=== PATIENT | male | born 1960 | race Caucasian/White ===

== ENCOUNTER 2018-11-14 09:21 | Emergency (ER) | payer MEDICAID, SELFPAY ==
[2018-11-14] VITALS (66 sets, daily range): BP systolic 131–164; BP diastolic 60–90; PULSE 51–79; RESP 8–24; TEMP 36.6; O2SAT 95–100
--- NOTE | 2018-11-14 09:46 | W.ED.GENAD ---
Discharge Plan Disposition Patient Disposition: AGAINST MEDICAL ADVICE Condition: Fair Discharge Details Chief Complaint: Chest Pain Clinical Impression: Chest pain Primary Care Provider: Henri Thurston ED Provider: Tania Lopez Home Meds and New Rx's Prescriptions: Continued diphenhydramine HCl [Benadryl] 25 MG capsule 25 mg PO PRN PRNRF: 0 nitroglycerin 0.4 MG tablet, sublingual 0.4 mg Sublingual ONCE RF: 0 aspirin [Aspirin Low-Strength] 81 MG tablet,chewable 81 mg PO DAILY RF: 0 ferrous sulfate 325 MG tablet 325 mg PO DAILY RF: 0 pravastatin 40 MG tablet 40 mg PO DAILY Qty: 30 RF: 4 metoprolol succinate 50 MG tablet extended release 24 hr 50 mg PO DAILY Qty: 90 RF: 4 omeprazole 20 mg capsule,delayed release(DR/EC) 20 mg PO DAILY 90 Days Qty: 90 RF: 5 Discharge Instructions Instructions: Chest Pain (ED) Additional Instructions: You have elected to leave the emergency department AGAINST MEDICAL ADVICE. You may return to the emergency department anytime if you change your mind. Please return immediately to the emergency department he develop any new or worsening symptoms or if you become otherwise concerned. It is extremely important that you call as soon is possible to make an appointment to be seen by your primary care doctor and by your city clerk in follow-up for this visit. It is also extremely important that you attend your scheduled stress test on November 19 at 8:30 AM. Please arrive at 8:15 AM Referrals: Henri Thurston [Primary Care Provider] - Paulino Vaughan MD [ CONSULTING PHYSICIAN] - Discharge Data Discharge Date/Time-TO BE ENTERED AT DEPARTURE: 11/14/18 15:49 Medical Decision Making Hans Kiser is a 58-year-old man with history of peripheral vascular disease, coronary artery disease status post stents who presented to the emergency department with exertional chest pain over the past 3 months with episode that occurred this morning, pain now resolved while resting in the emergency department. Exam patient is well and nontoxic appearing. Benign cardiopulmonary exam. Concern for ACS versus PE versus other. Exam/history is not consistent with sepsis, acute aortic pathology. Plan for EKG, chest x-ray, screening labs, telemetry. Will monitor and reassess. Pt reassessed, continues to be asymptomatic. Pt stating that he does not wish to be admitted to the hospital. He is amenable to repeat troponin and repeat EKG. We will continue to monitor. Repeat troponin and repeat EKG remained normal. Patient states that he has had no symptoms since being the emergency department. I am very concerned that patient symptoms may be cardiac in nature, given that they are exertional and his significant cardiac history he is likely experiencing unstable angina. I discussed my recommendation for admission to the patient. Patient reports that he has a phobia of being an unusual places, and does not want to stay in the hospital at this time. I discussed the risks of leaving AGAINST MEDICAL ADVICE including or permanent disability at length with the patient. Patient verbalizes understanding of the risks, has decision-making capacity, and continues to refuse to be admitted. I scheduled outpatient stress test for soonest appointment, November 19 8:30am, patient placed on list for outpatient follow-up with cardiology. I had a lengthy discussion with the patient regarding return to emergency department precautions, that he may return to the emergency department anytime if he changes his mind, importance of outpatient stress testing and outpatient follow-up with his PCP and with cardiology, and home care. Patient verbalized understanding of the plan. Patient was discharged home with clear plan for outpatient follow-up. All questions were answered. Medical Records Medical records reviewed: Yes I reviewed the patient's medical records. Imaging Data Radiologic Study: Attestation: I personally reviewed and interpreted this imaging study as follows: Radiologist's impression: PORTABLE AP CHEST: No priors. The heart is normal in size. The lungs are clear. The mediastinal structures and pleura appear intact. CONCLUSION: Normal chest. CT ANGIOGRAPHY OF THE CHEST: CT angiography was performed with multi slice acquisition and multi planar and 3D reconstruction. Routine examination was performed. There is no evidence of a pulmonary embolus. The thoracic aorta is intact. No evidence of dissection or aneurysm. The heart size is within normal limits. No significant pericardial effusion is seen. Coronary artery calcifications are present. No significant thoracic adenopathy, ascites or pneumoperitoneum is seen. No focal consolidating infiltrates are seen in the lungs. There is scarring in the lingula. The tracheobronchial tree is unremarkable. The bones appear intact. IMPRESSION: No evidence of pulmonary embolus, thoracic aortic dissection or aneurysm. Lab Data Lab results reviewed: Yes I reviewed the patient's lab results. Laboratory Tests Range/Units 11/14/18 11/14/18 11/14/18 09:40 09:40 09:40 WBC (4.4-10.8) k/cumm 4.58 RBC (4.50-6.00) m/cumm 4.62 Hgb (13.5-17.5) g/dL 14.6 Hct (40.0-50.0) % 41.8 MCV (80-95) fL 90.5 MCH (27.0-33.0) pg 31.6 MCHC (32.0-36.0) g/dL 34.9 RDW (11.8-14.1) % 12.7 Plt Count (130-400) x1000/uL 230 MPV (8.0-11.0) fL 9.9 Immature Gran % 0.4 Neutrophils % 64.3 Lymphocytes % 19.2 Monocytes % 12.4 Eosinophils % 2.6 Basophils % 1.1 Absolute Neutrophils (1.2-6.7) k/cumm 2.94 Absolute Lymphocytes (1.2-3.4) k/cumm 0.88 L Absolute Monocytes (0.11-0.7) k/cumm 0.57 Absolute Eosinophils (0.0-0.7) k/cumm 0.12 Absolute Basophils (0.0-0.2) k/cumm 0.05 D-Dimer (<500) ng/mlFEU 865 H Sodium (136-145) mmol/L 130 L Potassium (3.5-5.1) mmol/L 4.0 Chloride (98-107) mmol/L 94 L Carbon Dioxide (21.0-32.0) mmol/L 25.6 Anion Gap (3-11) mmol/L 10.4 BUN (7-18) mg/dL 3 L Creatinine (0.70-1.30) mg/dL 0.63 L Estimated GFR/1.73 m2 (mL/min/1.73m2) >= 60.00 Glucose (70-100) mg/dL 76 Calcium (8.5-10.1) mg/dL 8.9 Magnesium (1.8-2.4) mg/dL 1.6 L Total Bilirubin (0.2-1.0) mg/dL 0.6 AST (15-37) U/L 44 H ALT (12-78) U/L 48 Alkaline Phosphatase (46-116) U/L 91 Troponin I (0.00-0.06) ng/mL < 0.02 NT-Pro-B Natriuret Pep ( - 299) pg/mL 169 Total Protein (6.4-8.2) g/dL 7.5 Albumin (3.4-5.0) g/dL 3.5 Range/Units 11/14/18 13:20 WBC (4.4-10.8) k/cumm RBC (4.50-6.00) m/cumm Hgb (13.5-17.5) g/dL Hct (40.0-50.0) % MCV (80-95) fL MCH (27.0-33.0) pg MCHC (32.0-36.0) g/dL RDW (11.8-14.1) % Plt Count (130-400) x1000/uL MPV (8.0-11.0) fL Immature Gran % Neutrophils % Lymphocytes % Monocytes % Eosinophils % Basophils % Absolute Neutrophils (1.2-6.7) k/cumm Absolute Lymphocytes (1.2-3.4) k/cumm Absolute Monocytes (0.11-0.7) k/cumm Absolute Eosinophils (0.0-0.7) k/cumm Absolute Basophils (0.0-0.2) k/cumm D-Dimer (<500) ng/mlFEU Sodium (136-145) mmol/L Potassium (3.5-5.1) mmol/L Chloride (98-107) mmol/L Carbon Dioxide (21.0-32.0) mmol/L Anion Gap (3-11) mmol/L BUN (7-18) mg/dL Creatinine (0.70-1.30) mg/dL Estimated GFR/1.73 m2 (mL/min/1.73m2) Glucose (70-100) mg/dL Calcium (8.5-10.1) mg/dL Magnesium (1.8-2.4) mg/dL Total Bilirubin (0.2-1.0) mg/dL AST (15-37) U/L ALT (12-78) U/L Alkaline Phosphatase (46-116) U/L Troponin I (0.00-0.06) ng/mL 0.03 NT-Pro-B Natriuret Pep ( - 299) pg/mL Total Protein (6.4-8.2) g/dL Albumin (3.4-5.0) g/dL ECG Data Attestation: I personally reviewed and interpreted this ECG (s) as follows: Interpretation: EKG is sinus rhythm at 63, normal axis, no ST elevation or depression, nondiagnostic EKG Repeat EKG at 13:13 with apparent lead reversal V1/V2, will repeat Repeat EKG 13:23 shows sinus rhythm at 56, normal axis, unchanged from initial, nondiagnostic EKG HPI General Mode of arrival: ambulatory. Date/Time Provider Initiated Documentation: 11/14/18 09:46. Limitations to Documentation: no limitations. Information obtained by: patient, RN notes reviewed and old records reviewed. HPI Narrative: Hans Kiser is a 58 y/o man with history of cardiac artery disease status post stents, peripheral vascular disease status post stents presenting to the emergency department chest pain. Patient reports that he has several cardiac stents, with the last one being placed 2 to 3 years ago, this is also the approximate time of his last stress test. Patient reports that over the past 2 to 3 months he has had increasing chest pain that seems worse with exertion and improved with rest. Patient reports that he had his typical worsening of chest pain while exerting himself this morning, and felt that he should be evaluated given that his symptoms seem worse in the past few months than they have over the past year. He reports that pain is in his left chest, aching, and radiates into his left arm. He reports baseline mild shortness of breath and nausea during episodes of chest pain, but no worsening of his shortness of breath, no other new pain, no cough, no numbness or weakness the extremities. Approximately 1 month ago patient traveled to [place] and [facility] by car, no other recent travel. Has been eating and drinking as usual. No recent illness. Took his morning meds this morning including 81 mg of aspirin. Related Data Home Medications Medication Instructions Recorded Confirmed aspirin [Aspirin Low-Strength] 81 mg PO DAILY tab-cap 10/22/14 11/14/18 diphenhydramine HCl [Benadryl] 25 mg PO PRN PRN 10/22/14 11/14/18 nitroglycerin 0.4 mg SUBLINGUAL ONCE tab-cap 10/22/14 11/14/18 ferrous sulfate 325 mg PO DAILY 02/11/15 11/14/18 pravastatin 40 mg PO DAILY #30 tab-cap 02/16/15 11/14/18 metoprolol succinate 50 mg PO DAILY #90 tab-cap 07/27/15 11/14/18 omeprazole 20 mg capsule,delayed 20 mg PO DAILY 90 Days #90 tab-cap 03/01/18 11/14/18 release Previous Rx's Medication Instructions Recorded omeprazole 20 mg capsule,delayed 20 mg PO DAILY 90 Days #90 tab-cap 03/01/18 release Allergies Allergy/AdvReac Type Severity Reaction Status Date / Time clopidogrel bisulfate Allergy Unverified 11/14/18 09:31 [From Plavix] lisinopril Allergy Unverified 11/14/18 09:31 General Stated Complaint: Chest Pain CONSTANCE: 2 Review of Systems Review of Systems Constitutional: denies fevers Eyes: denies eye pain ENT: denies facial pain, dental pain, sore throat Cardiovascular: denies edema, reports chest pain Respiratory: Reports baseline shortness of breath and cough, not increased from his usual GI: denies abdominal pain, vomiting, diarrhea : denies flank pain MSK: denies back pain, neck pain, arthralgias, myalgias Skin: denies rash Neuro: denies headaches, numbness, weakness PFSH Social History Smoking/Tobacco Use Status: Current every day Alcohol Intake: current Alcohol Intake frequency: 3 or more drinks per day Alcohol type: beer Substance use type: does not use Do you feel safe at home: Yes Do you feel safe in your relationship?: Yes Exam Narrative Exam Narrative: Constitutional: well and [id number], pleasant, conversing normally HENT: head atraumatic/normocephalic/normal inspection, mucous membranes moist Eyes: conjunctiva normal, sclera normal, pupils 3mm b/l Neck: no stridor, normal ROM, trachea midline Chest: normal inspection Resp: normal work of breathing, LCTAB Cardio: normal rate, normal rhythm, no murmur appreciated GI: abdomen soft, non-tender, non-distended Back: normal inspection, no rash Skin: warm, dry, normal color, no rash Neuro: alert, not altered, grossly non-focal, normal tone Ext: no edema, no posterior calf tenderness Psych: normal mood, normal affect, normal behavior Course Vital Signs Temperature 36.6 C 11/14/18 09:26 Pulse 62 11/14/18 09:26 Respiratory Rate 14 11/14/18 09:26 Blood Pressure 164/90 H 11/14/18 09:26 Pulse Oximetry 98 11/14/18 09:26 Temperature 36.6 C 11/14/18 09:26 Temperature Source Skin 11/14/18 09:26 Pulse 62 11/14/18 09:26 Respiratory Rate 14 11/14/18 09:26 Respiratory Effort Non-Labored 11/14/18 09:31 Blood Pressure 164/90 H 11/14/18 09:26 Blood Pressure Position Sitting 11/14/18 09:26 Pulse Oximetry 98 11/14/18 09:26
[2018-11-14 10:22] LABS: Abs Immature Grans 0.02 k/cumm (0.0-0.09); Absolute Basophil Count 0.05 k/cumm (0.0-0.2); Absolute Eosinophil Count 0.12 k/cumm (0.0-0.7); Absolute Lymphocyte Count 0.88 k/cumm (1.2-3.4); Absolute Monocyte Count 0.57 k/cumm (0.11-0.7); Absolute Neutrophil Count 2.94 k/cumm (1.2-6.7); Basophils % 1.1; Eosinophils % 2.6; HCT 41.8 % (40.0-50.0); HGB 14.6 g/dL (13.5-17.5); Immature Grans % 0.4; Lymphocytes % 19.2; Mean Corp. HGB Concentration 34.9 g/dL (32.0-36.0); Mean Corpuscular Hemoglobin 31.6 pg (27.0-33.0); Mean Corpuscular Volume 90.5 fL (80-95); Mean Platelet Volume 9.9 fL (8.0-11.0); Monocytes % 12.4; Neutrophils % 64.3; Platelet Count 230 x1000/uL (130-400); RBC 4.62 m/cumm (4.50-6.00); RBC Distribution Width 12.7 % (11.8-14.1); White Blood Cell Count 4.58 k/cumm (4.4-10.8)
[2018-11-14 10:50] LABS: ALT 48 U/L (12-78); AST 44 U/L (15-37); Albumin 3.5 g/dL (3.4-5.0); Alkaline Phosphatase 91 U/L (46-116); Anion Gap 10.4 mmol/L (3-11); BUN 3 mg/dL (7-18); Bilirubin, Total 0.6 mg/dL (0.2-1.0); CO2 25.6 mmol/L (21.0-32.0); CREATININE 0.63 mg/dL (0.70-1.30); Calcium 8.9 mg/dL (8.5-10.1); Chloride 94 mmol/L (98-107); Glucose 76 mg/dL (70-100); Magnesium 1.6 mg/dL (1.8-2.4); NT-proBNP 169 pg/mL; Sodium 130 mmol/L (136-145); Total Protein 7.5 g/dL (6.4-8.2)
[2018-11-14 10:53] LABS: Troponin I < 0.02 ng/mL (0.00-0.06)
[2018-11-14 11:00] LABS: D-Dimer 865 ng/mlFEU (<500)
--- NOTE | 2018-11-14 11:38 | DI.CT_ITS ---
SYMPTOMS/DIAGNOSIS: CHEST PAIN, ELEVATED D DIMER CT ANGIOGRAPHY OF THE CHEST: CT angiography was performed with multi slice acquisition and multi planar and 3D reconstruction. Routine examination was performed. There is no evidence of a pulmonary embolus. The thoracic aorta is intact. No evidence of dissection or aneurysm. The heart size is within normal limits. No significant pericardial effusion is seen. Coronary artery calcifications are present. No significant thoracic adenopathy, ascites or pneumoperitoneum is seen. No focal consolidating infiltrates are seen in the lungs. There is scarring in the lingula. The tracheobronchial tree is unremarkable. The bones appear intact. IMPRESSION: No evidence of pulmonary embolus, thoracic aortic dissection or aneurysm.
[2018-11-14] MEDS: Omnipaque 350 MG/ML 100 ML BTL IJ (11:39)
[2018-11-14] MEDS: Normal Saline 1,000 ML 1000 ML IV (11:51)
[2018-11-14 13:45] LABS: Troponin I 0.03 ng/mL (0.00-0.06)
== END 2018-11-14 15:49 | disposition left against medical advice (07) ==
PROVIDERS: Emergency Provider Student in an Organized Health Care Education/Training Program; PCP Neuromusculoskeletal Medicine & OMM
DX: R07.9 Chest pain, unspecified (principal); Z53.29 Procedure and treatment not carried out because of patient's decision for other reasons
CPT/HCPCS: 36415; 71275; 80053; 93005; 96360; 99285; 71045; 83735; 83880; 84484; 85025; 85379; 93010; J3490

== ENCOUNTER 2018-11-19 00:29 | Outpatient (CLI) | payer MEDICAID, SELFPAY ==
--- NOTE | 2018-11-19 08:30 | ETT_ITS ---
*[facility]* *[facility]* [address] [place] [address] Stress Electrocardiography Amos protocol Date of study: 11/19/2018 *PATIENT PRESENTATION* Height: 162.6cm (64in) Blood Pressure: Weight: 61.4kg (135lb) BSA: 1.67m^2 Referring physician: Tania Lopez Ordering physician: Tania Lopez Impressions: Normal study after maximal exercise. Summary: 1. Stress ECG conclusions: The stress ECG is negative. Garcia treadmill score: 6. This score predicts a low risk of cardiac events. 2. Stress: The target heart rate was achieved. Indication: R07.9. History: REASON FOR VISIT: PT REPORTS CHRONIC CHEST PAINS FOR THE PAST 4-5 MONTHS AND THE NUMBER OF EPISODES ARE INCREASING. HE HAS A HISTORY OF 2 PRIOR NON-ST ELEVATION MYOCARDIAL INFARCTIONS, HYPERTENSION, HYPERLIPIDEMIA, PERIPHERAL VASCULAR DISEASE AND HE IS A 1 PACK PER DAY SMOKER. Risk factors: Current tobacco use. Hypertension. Dyslipidemia. Peripheral vascular disease. ALLERGIES: LISINOPRIL. PLAVIX. MEDICATIONS: SIMVASTATIN 40 MG DAILY. NITROGLYCERIN 0.4 MG PRN. METOPROLOL SUCCINATE 25 MG DAILY. ASPRIN 81 MG DAILY. BENADRYL 25 MG DAILY PRN. OMEPRAZOLE 20 MG DAILY. FERROUS SULFATE 325 MG DAILY. Protocol: Amos protocol. Baseline ECG: SINUS BRADYCARDIA. HR 57 BPM. Stress protocol: + +---+ + !Stage !HR !BP (mmHg) ! + +---+ + !Baseline supine !57 !130/60 (83) ! + +---+ + !Baseline standing !108!130/68 (89) ! + +---+ + !Stage I; 1.7mph, 10degrees; 3 min !83 !132/70 (91) ! + +---+ + !Stage II; 2.5mph, 12degrees; 3 min !97 !140/80 (100)! + +---+ + !Stage III; 3.4mph, 14degrees; 3 min!114!146/82 (103)! + +---+ + !Stage IV; 4.2mph, 16degrees; 3 min !138! ! + +---+ + !Peak stress !140! ! + +---+ + !Recovery; 1 min !112!190/86 (121)! + +---+ + !Recovery; 3 min !72 !142/68 (93) ! + +---+ + !Recovery; 6 min !74 !126/60 (82) ! + +---+ + * Stress results: Maximal heart rate during stress was 140bpm (86% of maximal predicted heart rate). The maximal predicted heart rate was 162bpm. The target heart rate was achieved. The rate-pressure product for the peak heart rate and blood pressure was 28353un Hg/min. Stress ECG: TREADMILL PORTION OF STRESS TEST ENDED IN 10 MINUTES & 15 SECONDS DUE TO COUGHING & SHORTNESS OF BREATH. NORMAL HEART RATE AND BLOOD PRESSURE RESPONSE TO EXERCISE MAX HR = 140 % OF TARGET = 86 RARE PAC. APPROXIMATE METS ACHIEVED = 12.21 1 OUT OF 10 CHEST PAIN AT BASELINE WITH NO INCREASE IN CHEST DISCOMFORT DURING EXERCISE OR RECOVERY. NO SIGNIFICANT ST SEGMENT CHANGES AVERAGE FUNCTIONAL CAPACITY FOR EXERCISE The stress ECG is negative. Garcia treadmill score: 6. This score predicts a low risk of cardiac events. Study data: Segun Puente MD supervised and was readily available during the procedure. This study was interpreted by [facility]. Study status: Routine. Consent: The risks, benefits, and alternatives to the procedure were explained to the patient and informed consent was obtained. Procedure: Initial setup. A baseline ECG was recorded. Surface ECG leads and manual cuff blood pressure measurements were monitored. Heart sounds: Normal. Lung sounds: Normal. Treadmill exercise testing was performed using the Amos protocol. Study completion: The patient tolerated the procedure well and was discharged from the lab. Discharge: The patient left the laboratory in stable condition. Birthdate: Patient birthdate: 1960. Sex: Gender: male. Study date: Study date: 11/19/2018. Study time: 00:01 AM. Electronically signed by Segun Puente MD 11/19/2018 10:27
== END 2018-11-19 00:49 ==
PROVIDERS: PCP Neuromusculoskeletal Medicine & OMM; Visit Provider Student in an Organized Health Care Education/Training Program
DX: R07.89 Other chest pain (principal)
CPT/HCPCS: 93017

== ENCOUNTER 2019-01-15 08:57 | Day surgery (SDC) | payer MEDICAID, SELFPAY ==
[2019-01-15 09:02] VITALS: BP 130/72; PULSE 65; RESP 18; TEMP 36.7; O2SAT 100
[2019-01-15] MEDS: Lactated Ringers 1,000 ML 80 ML IV (09:30)
--- NOTE | 2019-01-15 11:29 | W.PM.DSUDISC ---
Discharge Plan Disposition Patient Disposition: HOME Condition: Good Discharge Details Reason For Visit: EGD, colonoscopy Attending Provider: Rosa Sibley Primary Care Provider: Henri Thurston Home Meds and New Rx's Prescriptions: Continued Zyrtec 10 mg capsule 10 mg PO DAILY PRNRF: 0 cholecalciferol (vitamin D3) 1,000 unit capsule 1,000 unit PO DAILY RF: 0 diphenhydramine HCl [Benadryl] 25 MG capsule 25 mg PO PRN PRNRF: 0 aspirin [Aspirin Low-Strength] 81 MG tablet,chewable 81 mg PO DAILY RF: 0 ferrous sulfate 325 MG tablet 325 mg PO DAILY RF: 0 pravastatin 40 MG tablet 40 mg PO DAILY Qty: 30 RF: 4 metoprolol succinate 50 MG tablet extended release 24 hr 50 mg PO DAILY Qty: 90 RF: 4 omeprazole 20 mg capsule,delayed release(DR/EC) 20 mg PO DAILY 90 Days Qty: 90 RF: 5 nitroglycerin 0.4 mg tablet, sublingual 0.4 mg Sublingual ONCE PRNRF: 0 Discharge Instructions Additional Instructions: Findings: Your EGD showed mild inflammation of the stomach (gastritis) One small polyp was removed from the colon Follow up: My office will call with biopsy results. Colonoscopy may be indicated in 5 years depending on the polyp pathology. Please call if you develop: fevers >101.5 Nausea or Vomiting Abdominal pain that is not transient DAY SURGERY UNIT POST COLONOSCOPY INSTRUCTIONS 1. Because there will be medication in your system for the next 24 hours, you may feel a little sleepy. Your coordination will be affected. Therefore: a. Do not drive or operate dangerous equipment for 24 hours. b. Do not drink alcohol beverages for 24 hours (not even beer). c. Plan to go home and rest for the day. 2. Generally there are no restrictions on your activity after a day or so has gone by, but you may feel a bit fatigued for a few days. 3 After you arrive home you may have a light meal and return to a normal diet as you can tolerate it without feeling sick to your stomach. 4. After surgery, you may feel pain or discomfort. This should be only transient, but if it persists please contact your doctor. 5. If there are any questions regarding the findings of your procedure, please feel free to contact your doctor. 6. If you are unable to contact your doctor with a problem, contact the hospital at [phone]. 1. Continue all your regular medications unless directed otherwise. I understand the above instructions and have no questions. Signature of Patient or Responsible Adult Escort Date/Time Name of Responsible Adult Escort Signature of Nurse Date/Time Activity:: Activity as Tolerated Diet:: As Tolerated Discharge Orders Discharge Orders: Discharge Order (Routine); Ordered 01/15/19 Ordered By: Rosa Sibley DS: Diagnosis Discharge Diagnosis (1) Gastritis: Status: Acute (2) Colon polyp: Status: Acute (3) History of esophagogastroduodenoscopy (EGD): (4) S/P colonoscopy with polypectomy:
--- NOTE | 2019-01-15 12:01 | STOM_PTH ---
PATIENT: Hans Kiser LOC: [facility] U#:[id number] AGE/SX: 58/M ROOM: RE01/15/[address]: Rosa Sibley MD : 1960 BED: DIS: 01/15/2019 SPEC #: [id number] RECD: 01/15/19 17:05 STATUS: WILLY RE #: [id number] JEREL: 01/15/19 12:[address]: Rosa Sibley DEPT: Surgical Specimen RECD BY: Lolita Crowe ENTERED: 01/15/19 17:06 SP TYPE: STOMACH OTHR DR: Henri Thurston Tissues: 1 - STOMACH BIOPSY 2 - BIOPSY BOWEL Procedures: GROSS AND MICRO LEVEL 4 Comments: [id number]
[2019-01-15 13:10] VITALS: BP 142/80; PULSE 68; RESP 18; TEMP 36.5; O2SAT 100
--- NOTE | 2019-01-15 14:53 | ENDO_ITS ---
DATE OF PROCEDURE: January 15, 2019 PREOPERATIVE DIAGNOSIS: 1. Atypical chest pain. 2. Reflux. 3. Colon screening. POSTOPERATIVE DIAGNOSIS: 1. Mild gastritis. 2. Schatzki ring. 3. Rectal polyp. PROCEDURE: 1. Esophagogastroduodenoscopy with gastric biopsy. 2. Colonoscopy with biopsy removal of a polyp. SURGEON: Rosa Sibley M.D. ANESTHESIA: Monitored Anesthesia Care. INDICATIONS: This is a 58-year-old man who reports reflux and atypical chest pain. He has had a neg ative cardiac evaluation. He has not had a previous EGD or a colonoscopy. No family history of colo n cancer. PROCEDURE: He was placed in the left lateral decubitus position. Propofol was titrated to sedation. The scope was advanced into his esophagus under direct visualization and passed down into the stoma ch and duodenum. There was mild duodenitis of the bulb. The stomach itself revealed generalized mil d gastritis. Biopsies were taken from the gastric antrum. Retroflex view of the fundus and lesser c urvature showed no other abnormalities. Biopsies were taken from the antrum and body of the stomach. The GE junction exhibited no masses, inflammation or Doshi's. He did have a minimal Schatzki rin g that is presumably asymptomatic, therefore dilation was not performed. The air was suctioned from the stomach and the scope withdrawn with no other esophageal lesions found. Digital rectal examination revealed no abnormalities. The scope was advanced to the cecum without di fficulty. The ileocecal valve and appendiceal orifice were clearly identified. His prep was good. The scope was slowly withdrawn with no abnormalities seen within the ascending, transverse, descendin g or sigmoid colon. In the proximal rectum a diminutive polyp was removed with a cold forceps and se nt to Pathology. No other abnormalities were noted upon retroflexion. He tolerated the procedure we ll and was stable to recovery. If the polyp is adenomatous he will need a follow-up colonoscopy ken valdes in five years. cc: Henri Thurston M.D.
== END 2019-01-15 13:26 | disposition home or self-care (01) ==
PROVIDERS: PCP Neuromusculoskeletal Medicine & OMM; Visit Provider Surgery
PROC: (CPT 45380; principal; 2019-01-15 10:30)
DX: R07.89 Other chest pain (principal); K21.9 Gastro-esophageal reflux disease without esophagitis; Z12.11 Encounter for screening for malignant neoplasm of colon; D12.8 Benign neoplasm of rectum; K31.89 Other diseases of stomach and duodenum; K29.80 Duodenitis without bleeding; K29.60 Other gastritis without bleeding; K22.2 Esophageal obstruction; F17.210 Nicotine dependence, cigarettes, uncomplicated; F10.10 Alcohol abuse, uncomplicated
CPT/HCPCS: 45380; 43239; 88305; J2250

== ENCOUNTER 2022-06-08 12:34 | Emergency (ER) | payer MEDICAID, SELFPAY ==
[2022-06-08 12:41] VITALS: BP 115/74; PULSE 77; RESP 16; TEMP 37.2; O2SAT 100
--- NOTE | 2022-06-08 12:45 | RT.EKG_ITS ---
APPROVED REPORT Exam: Resting ECG Reason for Exam: sob Patient Location: E HR:66 bpm ECG Measurements Heart Rate 66 AXIS MO 156 P 14 QRSd 93 QRS 64 QT 377 T 42 QTc 395 Conclusion Sinus rhythm...normal P axis, V-rate 60- 99
--- NOTE | 2022-06-08 13:20 | ED.GENADUL_ITS ---
Discharge Plan Discharge Details Chief Complaint: [facility]Medical Primary Care Provider: Henri Thurston ED Provider: Teo Lopez Home Meds and New Rx's Prescriptions: No Action Zyrtec 10 mg capsule 10 mg PO DAILY PRN cholecalciferol (vitamin D3) 1,000 unit capsule 1,000 unit PO DAILY diphenhydramine HCl [Benadryl] 25 MG capsule 25 mg PO PRN PRN aspirin [Aspirin Low-Strength] 81 MG tablet,chewable 81 mg PO DAILY ferrous sulfate 325 MG tablet 325 mg PO DAILY metoprolol succinate 50 MG tablet extended release 24 hr 50 mg PO DAILY Qty: 90 nitroglycerin 0.4 mg tablet, sublingual 0.4 mg Sublingual ONCE PRN atorvastatin 20 mg tablet 20 mg PO DAILY Label Comments: TAKE ONE TABLET BY MOUTH EVERY DAY modafinil 200 mg Tablet 200 mg PO DAILY omeprazole 20 mg tablet,delayed release (DR/EC) 40 mg PO BID Medical Decision Making 1325 -- 62-year-old male chronic smoker with history of hypertension, hyperlipidemia, coronary artery disease, gastritis, here with generalized fatigue over the past 1 month with cough over the past few weeks. He has had night chills for some time. Recent decreased appetite. Patient is hemodynamically stable with no signs of focal bacterial infection on exam. Consider electrolyte abnormalities versus thyroid dysfunction versus malignancy versus other. Plan to obtain screening labs and chest x-ray. --initial labs reviewed: Hyponatremia with sodium of 127 noted. 1540 -- Patient was given IV fluid bolus. CT of the abdomen pelvis and chest interpreted by radiology, Dr. Trinh, who I spoke with and notes: Atherosclerosis, scarring left upper lobe of the lung which is unchanged from prior, no findings concerning for malignancy or other acute surgical pathology. Plan to repeat BMP. HPI General Mode of arrival: ambulatory . Date/Time Provider Initiated Documentation: 06/08/22 12:45 . Limitations to Documentation: no limitations . Information obtained by: patient . HPI Narrative: 62-year-old male with multiple medical problems including history of coronary artery disease, status post stents, hypertension, hyperlipidemia, tobacco use, gastritis, here with chief complaint of generalized fatigue. Symptoms are severe and persistent over the past 1 month. He does note cough persistent over the past few weeks. No fevers but does have chills at night that has been going on for months. He denies associated chest pain but does have some dyspnea on exertion. He also notes nausea. No vomiting. He has had dark coloration of urine for the past 3 weeks. No dysuria or roma hematuria. Related Data Home Medications Medication Instructions Recorded Confirmed aspirin 81 mg chewable tablet 81 mg PO DAILY 10/22/14 06/08/22 (Aspirin Low-Strength) diphenhydramine HCl 25 mg capsule 25 mg PO PRN PRN 10/22/14 06/08/22 (Benadryl) ferrous sulfate 325 mg (65 mg 325 mg PO DAILY 02/11/15 06/08/22 iron) tablet metoprolol succinate 50 mg 50 mg PO DAILY #90 tab-caps 07/27/15 06/08/22 tablet,extended release 24 hr cetirizine 10 mg capsule (Zyrtec) 10 mg PO DAILY PRN 01/03/19 06/08/22 cholecalciferol (vitamin D3) 25 1,000 unit PO DAILY 01/03/19 06/08/22 mcg (1,000 unit) capsule nitroglycerin 0.4 mg sublingual 0.4 mg sublingual ONCE PRN 01/03/19 06/08/22 tablet atorvastatin 20 mg tablet 20 mg PO DAILY 06/08/22 06/08/22 modafinil 200 mg tablet 200 mg PO DAILY 06/08/22 06/08/22 omeprazole 20 mg tablet,delayed 40 mg PO BID 06/08/22 06/08/22 release Allergies Allergy/AdvReac Type Severity Reaction Status Date / Time clopidogrel bisulfate Allergy Verified 06/08/22 12:45 [From Plavix] lisinopril Allergy Verified 06/08/22 12:45 General Stated Complaint: GenMedical CONSTANCE: 3 Review of Systems All systems reviewed & are unremarkable except as noted in HPI and below Constitutional Constitutional: Denies fever(s) Cardiovascular Cardiovascular: Reports as per HPI and Denies pedal edema Respiratory Respiratory: Reports as per HPI PFSH All Active Problems Colon polyp (Acute) Gastritis (Acute) Encounter for screening colonoscopy (Acute) Medical History Acute subendocardial infarction Alcohol abuse Allergic rhinitis Anisocytosis CAD (coronary artery disease) Chronic fatigue syndrome Epididymitis HTN (hypertension) Hyperlipidemia Hypersomnia Iron deficiency anemia Lesion of ulnar nerve Primary central sleep apnea Restless legs Tobacco use Tremor Surgical History H/O heart artery stent History of esophagogastroduodenoscopy (EGD) 01/15/19 History of surgery per pt R leg S/P colonoscopy with polypectomy 01/15/19 Family History Other Cancer Diabetes Heart disease Social History Smoking/Tobacco Use Status: Current every day Tobacco Type: cigarettes Years smoked: 40 Smoking risk assessment performed?: Yes Alcohol Intake: current Alcohol Intake frequency: 3 or more drinks per day Alcohol type: beer Drug use: Never Substance use type: does not use Do you feel safe at home: Yes Exam Const General: cooperative and no acute distress HENMT Mouth: moist mucous membranes Eyes Conjunctivae: normal conjunctivae Sclera: normal sclerae Neck Neck: trachea midline and supple Resp Effort & Inspection: normal respiratory effort Auscultation: clear to auscultation bilaterally, no rales, no rhonchi and no wh eezes Cardio Jugular venous pressure: no JVD Rate: regular rate and not tachycardic Rhythm: regular rhythm Heart Sounds: no gallops, no murmurs and no rubs GI Palpation: soft, not firm, no guarding, no masses, not rigid and nontender Skin General skin exam: no rashes or lesions noted Neuro General: patient alert, patient awake and tone normal Cognition: normal cognition Speech: speech normal Motor: strength 5/5 throughout Sensory Exam: no sensory deficits noted Extrem General: no edema Psych Appearance: grossly normal Mental Status: mental status grossly normal Speech and Movement: speech and movement normal Course Vital Signs Vital signs: Vital Signs Temperature 37.2 C 06/08/22 12:41 Pulse 77 06/08/22 12:41 Respiratory Rate 16 06/08/22 12:41 Blood Pressure 115/74 06/08/22 12:41 Pulse Oximetry 100 06/08/22 12:41 Temperature 37.2 C 06/08/22 12:41 Temperature Source Skin 06/08/22 12:41 Pulse 77 06/08/22 12:41 Respiratory Rate 16 06/08/22 12:41 Respiratory Effort 06/08/22 12:50 Blood Pressure 115/74 06/08/22 12:41 Blood Pressure Position Sitting 06/08/22 12:41 Pulse Oximetry 100 06/08/22 12:41 Oxygen Delivery Method Room Air 06/08/22 12:41 Oxygen Flow Rate 0 06/08/22 12:41 Pain Level 4 06/08/22 12:41 Lab/Test Results Lab/Test Results: Laboratory Tests Range/Units 06/08/22 13:00 WBC Cancelled RBC Cancelled Hgb Cancelled Hct Cancelled MCV Cancelled MCH Cancelled MCHC Cancelled RDW Cancelled Plt Count Cancelled MPV Cancelled Immature Gran % Cancelled Neutrophils % Cancelled Band Neutrophils % Cancelled Lymphocytes % Cancelled Atypical Lymphs % Cancelled Monocytes % Cancelled Eosinophils % Cancelled Basophils % Cancelled Metamyelocytes % Cancelled Myelocytes % Cancelled Promyelocytes % Cancelled Other Cells % Cancelled Nucleated RBC % Cancelled Absolute Neutrophils Cancelled Absolute Lymphocytes Cancelled Absolute Monocytes Cancelled Absolute Eosinophils Cancelled Absolute Basophils Cancelled RBC Morphology Cancelled Polychromasia Cancelled Hypochromasia Cancelled Poikilocytosis Cancelled Basophilic Stippling Cancelled Anisocytosis Cancelled Microcytosis Cancelled Macrocytosis Cancelled Spherocytes Cancelled Tear Drop Cells Cancelled Ovalocytes Cancelled Stomatocytes Cancelled [place] Bodies Cancelled Emma Cells/Echinocytes Cancelled Acanthocytes (Spur) Cancelled Schistocytes Cancelled
[2022-06-08 13:24] LABS: ALT 26 U/L (16-63); AST 29 U/L (15-37); Albumin 3.2 g/dL (3.4-5.0); Alkaline Phosphatase 73 U/L (46-116); Anion Gap 8.6 mmol/L (3-11); BUN 4 mg/dL (7-18); Bilirubin, Total 0.9 mg/dL (0.2-1.0); CO2 26.4 mmol/L (21.0-32.0); CREATININE 0.7 mg/dL (0.70-1.30); Calcium 9.2 mg/dL (8.5-10.1); Chloride 92 mmol/L (98-107); Estimated GFR 104.18 (mL/min/1.73m2); Glucose 91 mg/dL (74-106); Potassium 3.4 mmol/L (3.5-5.1); Sodium 127 mmol/L (136-145); Total Protein 7.7 g/dL (6.4-8.2)
[2022-06-08 13:47] VITALS: RESP 16
[2022-06-08 13:48] LABS: Bilirubin Negative (Negative); Blood Negative (Negative); Clarity Sl Cloudy (Clear); Glucose Negative (Negative); Ketones Negative (Negative); Leukocyte Esterase Negative (Negative); Nitrite Negative (Negative); pH 6.5 (5-8)
[2022-06-08 13:52] VITALS: BP 140/69; PULSE 66; RESP 16; O2SAT 100
[2022-06-08 13:53] LABS: Abs Immature Grans 0.04 10^3/uL (0.0-0.06); Absolute Basophil Count 0.03 10^3/uL (0.0-0.2); Absolute Eosinophil Count 0.03 10^3/uL (0.0-0.7); Absolute Monocyte Count 0.93 10^3/uL (0.1-0.8); Absolute Neutrophil Count 3.54 10^3/uL (1.2-6.7); Basophils % 0.6; Eosinophils % 0.6; HCT 36.5 % (40.0-50.0); HGB 12.8 g/dL (13.5-17.5); Immature Grans % 0.7; Lymphocytes % 14.9; MCH 31.8 pg (27.0-33.0); MCHC 35.1 % (32.0-36.0); MCV 91 fL (80-95); MPV 9.1 fL (8.0-11.0); Monocytes % 17.3; Neutrophils % 65.9; Platelet Count 195 10^3/uL (130-400); RBC 4.03 10^6/uL (4.36-5.78); RDW 11.6 % (11.8-14.1); RDW-SD 38.5 fL; WBC 5.37 10^3/uL (4.4-10.8)
--- NOTE | 2022-06-08 14:00 | DI.CT_ITS ---
Exam(s) CT CHEST/ABD/PEL W EXAM: CT CHEST/ABD/PEL W CLINICAL HISTORY: fatigue, nausea, SOB, cough, chronic smoker. TECHNIQUE: Imaging Protocol: Axial computed tomography images with coronal and sagittal reformatted images were created and reviewed CONTRAST MATERIAL: Intravenous: Omnipaque 350 Contrast volume:100 ml Oral: no COMPARISON: CT CT CHEST PE CTA from 11/14/2018 FINDINGS: CHEST: Tracheobronchial tree: Patent where visualized. Mediastinum and Lupe: No dominant adenopathy or fluid collection. Pulmonary parenchyma: Scarring right lung apex. Mild emphysematous changes. No infiltrates. No con solidation or dominant measurable mass. Pleura: No effusion or pneumothorax. Lymph nodes: Within normal limits. Aorta: Thoracic portion non-dilated. Atherosclerotic changes. Heart: Mildly and dilated. Coronary artery stents. No pericardial effusion. Bones: Unremarkable for age. No lytic or blastic lesions. ABDOMEN: Liver: Normal density. No measurable mass. Gallbladder and biliary tract: No radiodense calculus or dilation. Pancreas: Normal density, no abnormal calcifications or inflammatory process. Spleen: Normal. Kidneys: Normal size, contour and axis. No radiodense stones or obstructive uropathy. No masses seen. Adrenal glands: No masses seen. Aorta: Abdominal portion non-dilated. Severe atherosclerotic changes bilateral iliac artery stents. Lymph nodes: Within normal limits. Soft tissues: Unremarkable. PELVIS: Bladder: Symmetric distention, no gross wall thickening. Bowel: Stool in rectosigmoid. No obstruction or bowel wall thickening. Appendix normal. Peritoneal cavity: No ascites, collection or mesenteric inflammatory response. Bones: Unremarkable for age.. Reproductive organs: Within normal limits. IMPRESSION: No acute abnormality in the chest abdomen or pelvis.. Findings were called to Dr. Teo Lopez of the emergency department. RADIATION DOSE DELIVERED: 643.55mGy.cm Total DLP DATA REPOSITORY: All CT scans at this facility are submitted to the National Radiology Data Registry (NRDR) Dose Index Registry (DIR) with the [employer] [place] [employer] ([employer]). RADIATION OPTIMIZATION: All CT scans at this facility use at least one of these dose optimization te chniques: automated exposure control; mA and/or kV adjustment per patient size (includes targeted exa ms where dose is matched to clinical indication); or iterative reconstruction.
--- NOTE | 2022-06-08 14:03 | DI.RAD_ITS ---
Exam(s) XR PORTABLE CHEST AP EXAM: XR PORTABLE CHEST AP CLINICAL HISTORY: cough, weakness TECHNIQUE: 2D digital imaging was performed. COMPARISON: CR XR PORTABLE CHEST AP from 11/14/2018 FINDINGS: LUNGS: Clear. No pleural abnormality seen. HEART: Normal size. AORTA: Normal diameter. BONES: Unremarkable for age. Soft tissues: Unremarkable. IMPRESSION: No acute findings. DATA REPOSITORY: RADIATION DOSE DELIVERED:
[2022-06-08 14:21] LABS: COVID-19 PCR Negative (Negative); Influenza A PCR Negative (Negative); Influenza B PCR Negative (Negative); RSV PCR Negative (Negative)
[2022-06-08] MEDS: Normal Saline 500 ML IV (14:26)
--- NOTE | 2022-06-08 14:26 | NUR.NOTE ---
Nursing Note: CXR COMPLETE, IVF BOLUS RUNNING ORDERED, NO NEW COMPLAINTS FROM PT, CONT. TO MONITOR.
[2022-06-08 14:27] VITALS: BP 137/67; PULSE 69; RESP 18; O2SAT 100
[2022-06-08 14:30] LABS: Source Nasopharynx
[2022-06-08 14:34] LABS: TSH (W/Ref FT4) 3.18 uIU/mL (0.36-3.74)
--- NOTE | 2022-06-08 14:55 | NUR.NOTE ---
Nursing Note: IVF BOLUS COMPLETE, DI AWARE PT READY FOR ORDERED EXAM, NO NEW COMPLAINTS FROM PT, CONT. TO MONITOR.
[2022-06-08] MEDS: Normal Saline - Diluent 50 ML VIAL IJ (15:11)
[2022-06-08] MEDS: Omnipaque 350 MG/ML 100 ML BTL IJ (15:11)
[2022-06-08] MEDS: Normal Saline Flush 10 ML SYR IVP (15:12)
[2022-06-08 16:29] LABS: Anion Gap 5.5 mmol/L (3-11); BUN 4 mg/dL (7-18); CO2 27.5 mmol/L (21.0-32.0); CREATININE 0.6 mg/dL (0.70-1.30); Calcium 8.6 mg/dL (8.5-10.1); Chloride 97 mmol/L (98-107); Estimated GFR 109.14 (mL/min/1.73m2); Glucose 94 mg/dL (74-106); Sodium 130 mmol/L (136-145)
--- NOTE | 2022-06-08 16:50 | W.EDPROG ---
Date of service: 06/08/22 Time of Service: 16:50 Medical Decision Making Received signout from Dr. Lopez. Please see his note from today regarding details of his presentation, exam and plan of care. Patient is improved to 130. He has had some subjective improvement as well. We will arrange follow-up for primary care clinic. Home management discussed. Sign Out Sign Out Data: Sign Out Comment: Patient is here with generalized fatigue and weakness. Found to have hyponatremia. Plan at signout is to followup repeat BMP to assess for persistent hyponatremia. If improving, consider discharge with close outpatient followup. Last updated by Teo Lopez MD at 06/08/22 16:15 Discharge Plan Disposition Patient Disposition: Home Condition: Improving Discharge Details Clinical Impression: Acute hyponatremia Primary Care Provider: Henri Thurston ED Provider: John Gonsalves Home Meds and New Rx's Prescriptions: Continued Zyrtec 10 mg capsule 10 mg PO DAILY PRN cholecalciferol (vitamin D3) 1,000 unit capsule 1,000 unit PO DAILY diphenhydramine HCl [Benadryl] 25 MG capsule 25 mg PO PRN PRN aspirin [Aspirin Low-Strength] 81 MG tablet,chewable 81 mg PO DAILY ferrous sulfate 325 MG tablet 325 mg PO DAILY metoprolol succinate 50 MG tablet extended release 24 hr 50 mg PO DAILY Qty: 90 nitroglycerin 0.4 mg tablet, sublingual 0.4 mg Sublingual ONCE PRN atorvastatin 20 mg tablet 20 mg PO DAILY Label Comments: TAKE ONE TABLET BY MOUTH EVERY DAY modafinil 200 mg Tablet 200 mg PO DAILY omeprazole 20 mg tablet,delayed release (DR/EC) 40 mg PO BID Discharge Instructions Instructions: Hyponatremia (ED) Additional Instructions: Please contact your primary care physician to arrange follow-up. Call tomorrow. Return to the ER immediately for any worsening or new concerning symptoms. Referrals: Henri Thurston [Primary Care Provider] -
--- NOTE | 2022-06-09 14:45 | PDOC.ERCMACT ---
- If Service Date Differs Date of service: 06/09/22 Time of Service: 14:45 Care Management Activity Note Hans is seen in the ED for generalized fatigue and weakness. At the request of ED provider, CM contacts Hans's PCP (Henri Thurston DO, [facility] [place]) and requests they contact Hans directly to schedule a follow up appointment.
== END 2022-06-08 17:12 | disposition home or self-care (01) ==
PROVIDERS: Student in an Organized Health Care Education/Training Program; Emergency Provider Emergency Medicine; PCP Neuromusculoskeletal Medicine & OMM
DX: E87.1 Hypo-osmolality and hyponatremia (principal); I10 Essential (primary) hypertension; I25.10 Atherosclerotic heart disease of native coronary artery without angina pectoris; Z95.5 Presence of coronary angioplasty implant and graft; Z79.82 Long term (current) use of aspirin; Z20.822 Contact with and (suspected) exposure to COVID-19
CPT/HCPCS: 36415; 74177; 80048; 80053; 87637; 93005; 96360; 99285; 71045; 71260; 81003; 84443; 85025; 93010; J3490